=== PATIENT | female | born 1945 | race Caucasian/White ===

== ENCOUNTER 2017-12-30 17:40 | Inpatient (IN) | payer OTHER, MEDICAID ==
[~2017-12-30] VITALS: Ht 167.6 cm; Wt 76.7 kg
[2017-12-30 17:40] VITALS: BP_SYST 150
[~2017-12-30 17:40] MED LIST: AMIO100T3 PO; ASPI-862 PO; BISA10SU65; FOLI-43 PO; GUAI100L32 PO; IBUP-786 PO; INSU100V9 SQ; IPRA3AMP19 IH; LEVA1.256 IH; MEGE400O PO; METO25TA6 PO; NITR0.4T13 SL; POLY17PO4 PO; PRED10TA PO; SIMV10TA6 PO; THIA100T13 PO
[2017-12-30] MEDS ORDERED: NS 1000 ML IV.SOLN IV ONE (17:45)
[2017-12-30] MEDS ORDERED: ALOG1TAB10 PO (18:12)
[2017-12-30] MEDS ORDERED: ARTT OP (18:12)
[2017-12-30] MEDS ORDERED: INSU100V11 SQ (18:12)
[2017-12-30] MEDS ORDERED: DULR10 RC (18:12)
[2017-12-30] MEDS ORDERED: MELA3TAB37 PO (18:12)
[2017-12-30] MEDS ORDERED: METF1000 PO (18:12)
[2017-12-30 18:16] LABS: HEMOGLOBIN 11.6 g/dL (12.0-16.0); MEAN CORPUSCULAR HEMOGLOBIN 28 pg (27-31); MEAN CORPUSCULAR HGB CONC 32 % (32-36); MEAN CORPUSCULAR VOLUME 88 fL (79.0-98.0); PLATELET COUNT (AUTO) 466 K/uL (130-430); RED BLOOD CELL COUNT(AUTO) 4.11 MIL/uL (4.2-6.2); RED CELL DISTRIBUTION WIDTH 18.1 % (9.0-15.0); WHITE BLOOD COUNT (AUTO) 25.3 K/uL (4.8-10.8)
[2017-12-30 18:22] LABS: ANION GAP 16 (5-15); CALCIUM 9.5 mg/dL (8.4-11.0); CHLORIDE 117 mmol/L (98-107); CREATININE 1.37 mg/dL (0.55-1.30); GLUCOSE 281 mg/dL (70-99); POTASSIUM 4.6 mmol/L (3.5-5.1); SODIUM SERUM 155 mmol/L (136-145); UREA NITROGEN, BLOOD 33 mg/dL (8-21)
[2017-12-30 18:27] LABS: ALANINE AMINOTRANSFERASE 122 U/L (12-78); ALBUMIN 2.9 g/dL (3.4-4.8); ASPARTATE AMINOTRANSFERASE 213 U/L (10-37); TOTAL BILIRUBIN 0.3 mg/dL (0.0-1.0)
[2017-12-30 18:29] LABS: PROTHROMBIN TIME 10.4 SECS (9.5-12.5)
[2017-12-30] MEDS ORDERED: BETA1TAB4 PO (18:34)
[2017-12-30] MEDS ORDERED: MULT PO (18:34)
[2017-12-30] MEDS ORDERED: SSREG SUBCUT (18:34)
[2017-12-30] MEDS ORDERED: ASCO500T20 PO (18:34)
[2017-12-30] MEDS ORDERED: ASPI-1063 PO (18:34)
[2017-12-30] MEDS ORDERED: ZIN220 PO (18:34)
[2017-12-30] MEDS ORDERED: SERT50TA12 PO (18:34)
[2017-12-30 18:44] LABS: BAND % (MANUAL) 3 % (0-6); BASOPHILS % (MANUAL) 0 % (0-2); EOSINOPHILS % (MANUAL) 0 % (0-7); LYMPHOCYTES % (MANUAL) 7 % (20-46); MONOCYTES % (MANUAL) 0 % (0-11)
[2017-12-30 18:45] LABS: BILIRUBIN,URINE NEGATIVE (NEGATIVE); BLOOD, URINE NEGATIVE (NEGATIVE); CLARITY/URINE CLEAR (CLEAR); COLOR,URINE YELLOW (YELLOW); GLUCOSE,URINE NEGATIVE (NEGATIVE); KETONES,URINE TRACE (NEGATIVE); LEUKOCYTE ESTERASE ,URINE 1+ (NEGATIVE); NITRITE, URINE NEGATIVE (NEGATIVE); PROTEIN URINE 1+ (NEGATIVE); UROBILINOGEN,URINE 0.2 (0.2-1.0)
[2017-12-30] MEDS ORDERED: NS 500 ML IV ONE (18:45)
[2017-12-30] MEDS ORDERED: INSULIN REGULAR, HUMAN 10 UNITS/0.1 ML INJ IVP ONE (18:45)
[2017-12-30 18:52] LABS: BACTERIA,URINE MODERATE /HPF (None Seen); RBC,URINE 0-3 /HPF (0-3); YEAST,URINE Many /HPF (None Seen)
[2017-12-30] MEDS ORDERED: MILK OF MAGNESIA 30 ML UDC PO PRN (20:00)
[2017-12-30] MEDS ORDERED: BISACODYL 10 MG/SUPPOSITORY RC PRN (20:00)
[2017-12-30] MEDS ORDERED: LevALBUTEROL HCL 1.25 MG/0.5 ML *CONC.* VIAL.NEB (XOPENEX CONC.) INH PRN (20:00)
[2017-12-30] MEDS ORDERED: GENTAMICIN 100 mg/50 mL NS 50 ML IV SCH (20:00)
[2017-12-30 20:02] VITALS: BP_SYST 125
[2017-12-30] MEDS ORDERED: TEARS ARTIFICIAL 15 ML DROPS OP SCH (21:00)
[2017-12-30] MEDS ORDERED: VANCOMYCIN HCL 1 GM/NS PREMIX 250 ML IV ONE (21:00)
[2017-12-30 21:24] VITALS: BP_SYST 127
[2017-12-30] MEDS ORDERED: GENTAMICIN 120 mg/100 mL NS 100 ML IV ONE ×2 (21:30→23:45)
[2017-12-30] MEDS ORDERED: VANCOMYCIN HCL 1000 MG/VIAL IV ONE (21:30)
[2017-12-30 22:10] VITALS: BP_SYST 117
[2017-12-30] MEDS: KCL 20 mEq in 0.45% NS 1000 mL 1,000 ML IV SCH (22:13)
[2017-12-30] MEDS: ENOXAPARIN SODIUM 30 MG/0.3 ML SYRINGE SUBCUT SCH (22:41)
[2017-12-30] MEDS: INSULIN REGULAR, HUMAN 100 UNITS/ML, 10 ML VIAL (novoLIN R) SUBCUT PRN (22:42)
[2017-12-30] MEDS: methylPREDNISolone SOD SUCC/PF 62.5 MG/ML VIAL IVP SCH (23:54)
[2017-12-31] MEDS ORDERED: METOPROLOL TARTRATE 50 MG TABLET PO ONE (01:15)
[2017-12-31] MEDS: LevALBUTEROL HCL 1.25 MG/0.5 ML *CONC.* VIAL.NEB (XOPENEX CONC.) INH SCH ×4 (01:16→19:51)
[2017-12-31 01:30] VITALS: BP_SYST 117
[2017-12-31] MEDS ORDERED: GENTAMICIN 120 mg/ NS 100 mL IVPB IV ONE (02:00)
[2017-12-31] MEDS: methylPREDNISolone SOD SUCC/PF 62.5 MG/ML VIAL IVP SCH ×4 (06:38→23:53)
[2017-12-31] MEDS: INSULIN REGULAR, HUMAN 100 UNITS/ML, 10 ML VIAL (novoLIN R) SUBCUT PRN ×4 (06:41→21:30)
[2017-12-31 08:10] LABS: BASOPHILS # (AUTO) 0.1 K/uL (0.0-0.2); BASOPHILS % (AUTO) 0.4 % (0.0-2.0); HEMATOCRIT 29.9 % (36-48); HEMOGLOBIN 9.7 g/dL (12.0-16.0); LYMPHOCYTES # (AUTO) 3.5 K/uL (1.0-5.5); LYMPHOCYTES % (AUTO) 15.8 % (20.5-51.5); MEAN CORPUSCULAR HEMOGLOBIN 29 pg (27-31); MEAN CORPUSCULAR HGB CONC 32 % (32-36); MEAN CORPUSCULAR VOLUME 88 fL (79.0-98.0); MONOCYTES # (AUTO) 1.5 K/uL (0.0-1.0); MONOCYTES % (AUTO) 6.8 % (1.7-9.3); NEUTROPHILS # (AUTO) 17.3 K/uL (1.8-7.7); PLATELET COUNT (AUTO) 347 K/uL (130-430); RED BLOOD CELL COUNT(AUTO) 3.39 MIL/uL (4.2-6.2); RED CELL DISTRIBUTION WIDTH 18.2 % (9.0-15.0); WHITE BLOOD COUNT (AUTO) 22.4 K/uL (4.8-10.8)
[2017-12-31 08:22] LABS: ANION GAP 7 (5-15); CALCIUM 8.7 mg/dL (8.4-11.0); CREATININE 0.86 mg/dL (0.55-1.30); GLUCOSE 160 mg/dL (70-99); SODIUM SERUM 154 mmol/L (136-145); UREA NITROGEN, BLOOD 31 mg/dL (8-21)
[2017-12-31 08:31] VITALS: BP_SYST 117
[2017-12-31 08:37] LABS: CHLORIDE 121 mmol/L (98-107)
[2017-12-31] MEDS: FOLIC ACID 1 MG TABLET PO SCH (08:47)
[2017-12-31] MEDS: ASPIRIN 81 MG TABLET(ECOTRIN) PO SCH (08:47)
[2017-12-31] MEDS: ASCORBIC ACID 500 MG TABLET PO SCH (08:47)
[2017-12-31] MEDS: MULTIVITAMINS TAB 1 TABLET PO SCH (08:47)
[2017-12-31] MEDS: metFORMIN HCL 500 MG TABLET PO SCH ×2 (08:47→17:33)
[2017-12-31] MEDS: METOPROLOL TARTRATE 50 MG TABLET PO SCH ×2 (08:48→21:13)
[2017-12-31] MEDS: SERTRALINE HCL 50 MG TABLET PO SCH (08:48)
[2017-12-31] MEDS: TEARS ARTIFICIAL 15 ML DROPS OP SCH ×2 (08:49→21:14)
[2017-12-31] MEDS ORDERED: MILK OF MAGNESIA 30 ML UDC PO PRN (11:30)
[2017-12-31 12:45] VITALS: BP_SYST 103
[2017-12-31] MEDS: KCL 20 mEq in 0.45% NS 1000 mL 1,000 ML IV SCH (13:19)
[2017-12-31 16:45] VITALS: BP_SYST 108
[2017-12-31 17:44] LABS: ALBUMIN 2.5 g/dL (3.4-4.8); BILIRUBIN,DIRECT 0.1 mg/dL (0.0-0.3); TOTAL BILIRUBIN 0.3 mg/dL (0.0-1.0)
[2017-12-31] MEDS: FLUCONAZOLE 200 mg/ NS 100 ML IV SCH (17:45)
[2017-12-31] MEDS ORDERED: KAZANO PO SCH ×2 (18:00)
[2017-12-31 20:00] VITALS: BP_SYST 115
[2017-12-31] MEDS: CEFEPIME 1 GM in D5W 50 ML IV SCH (21:13)
[2017-12-31] MEDS: ENOXAPARIN SODIUM 30 MG/0.3 ML SYRINGE SUBCUT SCH (21:16)
[2017-12-31] MEDS ORDERED: VANCOMYCIN HCL 1,000 MG in NS 250 ML IV SCH (22:00)
[2018-01-01] MEDS: LevALBUTEROL HCL 1.25 MG/0.5 ML *CONC.* VIAL.NEB (XOPENEX CONC.) INH SCH ×4 (00:27→20:27)
[2018-01-01 00:40] VITALS: BP_SYST 100
[2018-01-01] MEDS: KCL 20 mEq in 0.45% NS 1000 mL 1,000 ML IV SCH ×2 (02:00→13:19)
[2018-01-01] MEDS ORDERED: GENTAMICIN 120 mg/100 mL NS 100 ML IV SCH (02:00)
[2018-01-01] MEDS: methylPREDNISolone SOD SUCC/PF 62.5 MG/ML VIAL IVP SCH ×4 (05:21→23:29)
[2018-01-01] MEDS: INSULIN REGULAR, HUMAN 100 UNITS/ML, 10 ML VIAL (novoLIN R) SUBCUT PRN ×4 (05:28→21:07)
[2018-01-01 06:05] LABS: BASOPHILS # (AUTO) 0.1 K/uL (0.0-0.2); BASOPHILS % (AUTO) 0.4 % (0.0-2.0); HEMATOCRIT 28.7 % (36-48); HEMOGLOBIN 9.3 g/dL (12.0-16.0); LYMPHOCYTES # (AUTO) 1.6 K/uL (1.0-5.5); LYMPHOCYTES % (AUTO) 11.9 % (20.5-51.5); MEAN CORPUSCULAR HEMOGLOBIN 29 pg (27-31); MEAN CORPUSCULAR HGB CONC 32 % (32-36); MEAN CORPUSCULAR VOLUME 89 fL (79.0-98.0); MONOCYTES # (AUTO) 0.2 K/uL (0.0-1.0); MONOCYTES % (AUTO) 1.1 % (1.7-9.3); NEUTROPHILS # (AUTO) 11.9 K/uL (1.8-7.7); PLATELET COUNT (AUTO) 304 K/uL (130-430); RED BLOOD CELL COUNT(AUTO) 3.24 MIL/uL (4.2-6.2); RED CELL DISTRIBUTION WIDTH 17.9 % (9.0-15.0); WHITE BLOOD COUNT (AUTO) 13.8 K/uL (4.8-10.8)
[2018-01-01 08:00] VITALS: BP_SYST 102
[2018-01-01] MEDS: METOPROLOL TARTRATE 50 MG TABLET PO SCH ×2 (09:00→20:56)
[2018-01-01] MEDS: ASPIRIN 81 MG TABLET(ECOTRIN) PO SCH (10:03)
[2018-01-01] MEDS: MULTIVITAMINS TAB 1 TABLET PO SCH (10:03)
[2018-01-01] MEDS: ASCORBIC ACID 500 MG TABLET PO SCH (10:03)
[2018-01-01] MEDS: SERTRALINE HCL 50 MG TABLET PO SCH (10:03)
[2018-01-01] MEDS: FOLIC ACID 1 MG TABLET PO SCH (10:03)
[2018-01-01] MEDS: metFORMIN HCL 500 MG TABLET PO SCH ×2 (10:03→17:56)
[2018-01-01] MEDS: TEARS ARTIFICIAL 15 ML DROPS OP SCH ×2 (10:04→20:59)
[2018-01-01] MEDS: CEFEPIME 1 GM in D5W 50 ML IV SCH ×2 (10:04→20:55)
[2018-01-01 11:09] LABS: NEUTROPHILS % (AUTO) 86.6 % (40.0-70.0)
[2018-01-01 13:29] VITALS: BP_SYST 117
[2018-01-01] MEDS: VANCOMYCIN HCL 1,000 MG in NS 250 ML IV SCH (16:16)
[2018-01-01 17:20] VITALS: BP_SYST 115
[2018-01-01] MEDS: FLUCONAZOLE 200 mg/ NS 100 ML IV SCH (18:33)
[2018-01-01 19:50] VITALS: BP_SYST 110
[2018-01-01] MEDS: ENOXAPARIN SODIUM 30 MG/0.3 ML SYRINGE SUBCUT SCH (20:57)
[2018-01-01] MEDS ORDERED: MUPIROCIN NASAL 2% OINT. NS SCH (21:00)
[2018-01-02] VITALS (14 sets, daily range): BP systolic 70–137
[2018-01-02] MEDS: LevALBUTEROL HCL 1.25 MG/0.5 ML *CONC.* VIAL.NEB (XOPENEX CONC.) INH SCH ×4 (01:28→19:38)
[2018-01-02] MEDS: KCL 20 mEq in 0.45% NS 1000 mL 1,000 ML IV SCH ×2 (02:53→13:48)
[2018-01-02] MEDS: methylPREDNISolone SOD SUCC/PF 62.5 MG/ML VIAL IVP SCH ×3 (06:34→18:11)
[2018-01-02] MEDS: INSULIN REGULAR, HUMAN 100 UNITS/ML, 10 ML VIAL (novoLIN R) SUBCUT PRN ×4 (06:37→21:01)
[2018-01-02] MEDS: MULTIVITAMINS TAB 1 TABLET PO SCH (08:50)
[2018-01-02] MEDS: ASPIRIN 81 MG TABLET(ECOTRIN) PO SCH (08:50)
[2018-01-02] MEDS: ASCORBIC ACID 500 MG TABLET PO SCH (08:50)
[2018-01-02] MEDS: metFORMIN HCL 500 MG TABLET PO SCH ×2 (08:51→18:11)
[2018-01-02] MEDS: FOLIC ACID 1 MG TABLET PO SCH (08:51)
[2018-01-02] MEDS: SERTRALINE HCL 50 MG TABLET PO SCH (08:51)
[2018-01-02] MEDS: MUPIROCIN 2% TOPICAL OINTMENT 22 GM TP SCH ×2 (08:52→20:56)
[2018-01-02] MEDS: METOPROLOL TARTRATE 50 MG TABLET PO SCH ×3 (09:00→20:58)
[2018-01-02] MEDS ORDERED: NS 500 ML IV ONE (09:30)
[2018-01-02] MEDS: CEFEPIME 1 GM in D5W 50 ML IV SCH ×2 (09:46→20:58)
[2018-01-02] MEDS: TEARS ARTIFICIAL 15 ML DROPS OP SCH ×2 (09:46→20:57)
[2018-01-02] MEDS ORDERED: NACL 0.9% 1,000 ML IV ONE (12:15)
[2018-01-02] MEDS ORDERED: ALBUMIN HUMAN 25% 100 ML IV ONE (12:15)
[2018-01-02 12:40] LABS: LYMPHOCYTES # (AUTO) 1.2 K/uL (1.0-5.5); LYMPHOCYTES % (AUTO) 6.6 % (20.5-51.5); MONOCYTES # (AUTO) 0.4 K/uL (0.0-1.0); NEUTROPHILS % (AUTO) 90.1 % (40.0-70.0); WHITE BLOOD COUNT (AUTO) 17.6 K/uL (4.8-10.8)
[2018-01-02 12:43] LABS: ANION GAP 19 (5-15); BASOPHILS # (AUTO) 0.1 K/uL (0.0-0.2); BASOPHILS % (AUTO) 0.8 % (0.0-2.0); CHLORIDE 107 mmol/L (98-107); GLUCOSE 278 mg/dL (70-99); HEMATOCRIT 33.1 % (36-48); HEMOGLOBIN 10.7 g/dL (12.0-16.0); MEAN CORPUSCULAR HEMOGLOBIN 29 pg (27-31); MEAN CORPUSCULAR HGB CONC 32 % (32-36); MEAN CORPUSCULAR VOLUME 89 fL (79.0-98.0); MONOCYTES % (AUTO) 2.5 % (1.7-9.3); NEUTROPHILS # (AUTO) 15.9 K/uL (1.8-7.7); PLATELET COUNT (AUTO) 337 K/uL (130-430); POTASSIUM 5.3 mmol/L (3.5-5.1); RED BLOOD CELL COUNT(AUTO) 3.74 MIL/uL (4.2-6.2); RED CELL DISTRIBUTION WIDTH 17.4 % (9.0-15.0); SODIUM SERUM 140 mmol/L (136-145)
[2018-01-02 12:44] LABS: CALCIUM 8.5 mg/dL (8.4-11.0); CREATININE 1.17 mg/dL (0.55-1.30); UREA NITROGEN, BLOOD 35 mg/dL (8-21)
[2018-01-02 12:51] LABS: ALANINE AMINOTRANSFERASE 84 U/L (12-78); ALBUMIN 2.4 g/dL (3.4-4.8); ASPARTATE AMINOTRANSFERASE 41 U/L (10-37); TOTAL BILIRUBIN 0.2 mg/dL (0.0-1.0)
[2018-01-02] MEDS ORDERED: AMIODARONE HCL 900 MG in D5W 482 ML IV SCH (13:00)
[2018-01-02] MEDS ORDERED: DIGOXIN 0.5 MG/2 ML AMP IVP ONE ×3 (14:15→22:00)
[2018-01-02] MEDS: FLUCONAZOLE 200 mg/ NS 100 ML IV SCH (16:34)
[2018-01-02] MEDS ORDERED: NOREPINEPHRINE 4 MG/4 ML VIAL IV ONE (17:21)
[2018-01-02] MEDS ORDERED: NOREPINEPHRINE BITARTRATE 4 MG in NS 246 ML IV PRN (18:00)
[2018-01-02] MEDS: VANCOMYCIN HCL 1,000 MG in NS 250 ML IV SCH (18:37)
[2018-01-02] MEDS: NACL 0.9% 1,000 ML IV SCH (19:53)
[2018-01-02] MEDS: ENOXAPARIN SODIUM 30 MG/0.3 ML SYRINGE SUBCUT SCH (21:00)
[2018-01-02] MEDS ORDERED: HALOPERIDOL LACTATE 5 MG/ML VIAL IM ONE (22:30)
[2018-01-03] VITALS (24 sets, daily range): BP systolic 91–137
[2018-01-03] MEDS: methylPREDNISolone SOD SUCC/PF 62.5 MG/ML VIAL IVP SCH ×4 (00:28→17:08)
[2018-01-03] MEDS: LevALBUTEROL HCL 1.25 MG/0.5 ML *CONC.* VIAL.NEB (XOPENEX CONC.) INH SCH ×4 (01:00→19:00)
[2018-01-03 06:25] LABS: BASOPHILS % (AUTO) 0.2 % (0.0-2.0); HEMATOCRIT 28.6 % (36-48); HEMOGLOBIN 9.2 g/dL (12.0-16.0); LYMPHOCYTES # (AUTO) 0.9 K/uL (1.0-5.5); LYMPHOCYTES % (AUTO) 5.2 % (20.5-51.5); MEAN CORPUSCULAR HEMOGLOBIN 29 pg (27-31); MEAN CORPUSCULAR HGB CONC 32 % (32-36); MEAN CORPUSCULAR VOLUME 88 fL (79.0-98.0); MONOCYTES # (AUTO) 0.6 K/uL (0.0-1.0); MONOCYTES % (AUTO) 3.4 % (1.7-9.3); NEUTROPHILS # (AUTO) 15.9 K/uL (1.8-7.7); NEUTROPHILS % (AUTO) 91.2 % (40.0-70.0); PLATELET COUNT (AUTO) 295 K/uL (130-430); RED BLOOD CELL COUNT(AUTO) 3.24 MIL/uL (4.2-6.2); RED CELL DISTRIBUTION WIDTH 17.8 % (9.0-15.0); WHITE BLOOD COUNT (AUTO) 17.4 K/uL (4.8-10.8)
[2018-01-03] MEDS: INSULIN REGULAR, HUMAN 100 UNITS/ML, 10 ML VIAL (novoLIN R) SUBCUT PRN ×4 (06:29→20:36)
[2018-01-03] MEDS: NACL 0.9% 1,000 ML IV SCH ×2 (06:38→15:52)
[2018-01-03 07:18] LABS: POTASSIUM 4.6 mmol/L (3.5-5.1)
[2018-01-03 07:19] LABS: CALCIUM 7.8 mg/dL (8.4-11.0); CREATININE 1.14 mg/dL (0.55-1.30); TOTAL BILIRUBIN 0.2 mg/dL (0.0-1.0)
[2018-01-03 07:20] LABS: ALBUMIN 2.5 g/dL (3.4-4.8)
[2018-01-03 07:22] LABS: THYROID STIMULATING HORMONE 1.51 uIu/mL (0.34-4.82)
[2018-01-03] MEDS: CEFEPIME 1 GM in D5W 50 ML IV SCH ×2 (08:24→20:38)
[2018-01-03] MEDS: SERTRALINE HCL 50 MG TABLET PO SCH (08:25)
[2018-01-03] MEDS: ASCORBIC ACID 500 MG TABLET PO SCH (08:25)
[2018-01-03] MEDS: ASPIRIN 81 MG TABLET(ECOTRIN) PO SCH (08:25)
[2018-01-03] MEDS: metFORMIN HCL 500 MG TABLET PO SCH ×2 (08:25→17:08)
[2018-01-03] MEDS: FOLIC ACID 1 MG TABLET PO SCH (08:25)
[2018-01-03] MEDS: MULTIVITAMINS TAB 1 TABLET PO SCH (08:25)
[2018-01-03] MEDS: TEARS ARTIFICIAL 15 ML DROPS OP SCH ×2 (08:26→20:39)
[2018-01-03] MEDS: MUPIROCIN 2% TOPICAL OINTMENT 22 GM TP SCH ×2 (08:26→20:40)
[2018-01-03] MEDS: METOPROLOL TARTRATE 50 MG TABLET PO SCH ×2 (08:27→20:41)
[2018-01-03] MEDS ORDERED: FUROSEMIDE 20 MG/2 ML VIAL IVP ONE ×2 (09:00→11:00)
[2018-01-03] MEDS ORDERED: AMIODARONE HCL 200 MG TABLET PO SCH (09:00)
[2018-01-03] MEDS: DIGOXIN 0.125 MG TABLET PO SCH (09:19)
[2018-01-03] MEDS: VANCOMYCIN HCL 1,000 MG in NS 250 ML IV SCH (15:53)
[2018-01-03] MEDS: FLUCONAZOLE 200 mg/ NS 100 ML IV SCH (17:10)
[2018-01-03] MEDS: guaiFENesin ER 600 MG TAB PO SCH (20:40)
[2018-01-03] MEDS: AMIODARONE HCL 200 MG TABLET PO SCH (20:41)
[2018-01-03] MEDS ORDERED: ENOXAPARIN SODIUM 30 MG/0.3 ML SYRINGE SUBCUT SCH (21:00)
[2018-01-04] VITALS (24 sets, daily range): BP systolic 95–138
[2018-01-04] MEDS: methylPREDNISolone SOD SUCC/PF 62.5 MG/ML VIAL IVP SCH ×4 (00:41→20:59)
[2018-01-04] MEDS: NACL 0.9% 1,000 ML IV SCH ×2 (00:42→09:56)
[2018-01-04] MEDS: LevALBUTEROL HCL 1.25 MG/0.5 ML *CONC.* VIAL.NEB (XOPENEX CONC.) INH SCH ×4 (00:47→19:39)
[2018-01-04 06:12] LABS: HEMATOCRIT 27.6 % (36-48); MEAN CORPUSCULAR HEMOGLOBIN 29 pg (27-31); MEAN CORPUSCULAR HGB CONC 33 % (32-36); MEAN CORPUSCULAR VOLUME 88 fL (79.0-98.0); PLATELET COUNT (AUTO) 260 K/uL (130-430); RED BLOOD CELL COUNT(AUTO) 3.15 MIL/uL (4.2-6.2); RED CELL DISTRIBUTION WIDTH 17.6 % (9.0-15.0); WHITE BLOOD COUNT (AUTO) 16.1 K/uL (4.8-10.8)
[2018-01-04 06:13] LABS: ANION GAP 8 (5-15); CALCIUM 7.5 mg/dL (8.4-11.0); CHLORIDE 109 mmol/L (98-107); CREATININE 0.89 mg/dL (0.55-1.30); GLUCOSE 146 mg/dL (70-99); POTASSIUM 3.4 mmol/L (3.5-5.1); SODIUM SERUM 141 mmol/L (136-145); UREA NITROGEN, BLOOD 29 mg/dL (8-21)
[2018-01-04 06:28] LABS: ALANINE AMINOTRANSFERASE 63 U/L (12-78); ALBUMIN 2.4 g/dL (3.4-4.8); ASPARTATE AMINOTRANSFERASE 21 U/L (10-37); THYROID STIMULATING HORMONE 0.99 uIu/mL (0.36-3.74); TOTAL BILIRUBIN 0.2 mg/dL (0.0-1.0)
[2018-01-04 08:00] LABS: BAND % (MANUAL) 1 % (0-6); BASOPHILS % (MANUAL) 0 % (0-2); EOSINOPHILS % (MANUAL) 0 % (0-7); LYMPHOCYTES % (MANUAL) 5 % (20-46); MONOCYTES % (MANUAL) 3 % (0-11)
[2018-01-04 08:02] LABS: MYELOCYTES % 4 % (0-0)
[2018-01-04 08:03] LABS: PROMYELOCYTES % 1 % (0-0)
[2018-01-04 08:05] LABS: WBC MORPHOLOGY HYPERSEGMENTED NEUT
[2018-01-04] MEDS: guaiFENesin ER 600 MG TAB PO SCH ×2 (08:57→20:06)
[2018-01-04] MEDS: FOLIC ACID 1 MG TABLET PO SCH (08:57)
[2018-01-04] MEDS: ASCORBIC ACID 500 MG TABLET PO SCH (08:57)
[2018-01-04] MEDS: SERTRALINE HCL 50 MG TABLET PO SCH (08:57)
[2018-01-04] MEDS: ASPIRIN 81 MG TABLET(ECOTRIN) PO SCH (08:57)
[2018-01-04] MEDS: METOPROLOL TARTRATE 50 MG TABLET PO SCH ×2 (08:58→20:04)
[2018-01-04] MEDS: metFORMIN HCL 500 MG TABLET PO SCH ×2 (08:58→17:19)
[2018-01-04] MEDS: MULTIVITAMINS TAB 1 TABLET PO SCH (08:58)
[2018-01-04] MEDS: AMIODARONE HCL 200 MG TABLET PO SCH ×2 (08:59→20:06)
[2018-01-04] MEDS: CEFEPIME 1 GM in D5W 50 ML IV SCH ×2 (09:00→20:59)
[2018-01-04] MEDS: DIGOXIN 0.125 MG TABLET PO SCH (09:05)
[2018-01-04] MEDS: MUPIROCIN 2% TOPICAL OINTMENT 22 GM TP SCH ×2 (09:06→20:13)
[2018-01-04] MEDS: TEARS ARTIFICIAL 15 ML DROPS OP SCH ×2 (09:07→20:14)
[2018-01-04] MEDS ORDERED: FUROSEMIDE 20 MG/2 ML VIAL IVP ONE (10:00)
[2018-01-04] MEDS: INSULIN REGULAR, HUMAN 100 UNITS/ML, 10 ML VIAL (novoLIN R) SUBCUT PRN ×3 (10:47→20:25)
[2018-01-04] MEDS ORDERED: POTASSIUM CHLORIDE 20 MEQ TAB.PRT.SR PO ONE (11:00)
[2018-01-04] MEDS ORDERED: 0.45% NACL 1,000 ML IV SCH (11:00)
[2018-01-04] MEDS: VANCOMYCIN HCL 1,000 MG in NS 250 ML IV SCH (16:22)
[2018-01-04] MEDS: FLUCONAZOLE 200 mg/ NS 100 ML IV SCH (17:20)
[2018-01-04] MEDS: ENOXAPARIN SODIUM 80 MG/0.8 ML SYRINGE SUBCUT SCH (20:08)
[2018-01-05] VITALS (19 sets, daily range): BP systolic 58–127
[2018-01-05] MEDS: LevALBUTEROL HCL 1.25 MG/0.5 ML *CONC.* VIAL.NEB (XOPENEX CONC.) INH SCH ×4 (01:01→20:04)
[2018-01-05 05:43] LABS: EOSINOPHILS % (AUTO) 0.1 % (0.0-4.0)
[2018-01-05 06:17] LABS: BASOPHILS % (AUTO) 0.1 % (0.0-2.0); HEMATOCRIT 27.3 % (36-48); HEMOGLOBIN 8.7 g/dL (12.0-16.0); LYMPHOCYTES % (AUTO) 6.1 % (20.5-51.5); MEAN CORPUSCULAR HEMOGLOBIN 28 pg (27-31); MEAN CORPUSCULAR HGB CONC 32 % (32-36); MEAN CORPUSCULAR VOLUME 87 fL (79.0-98.0); MONOCYTES # (AUTO) 0.3 K/uL (0.0-1.0); MONOCYTES % (AUTO) 1.9 % (1.7-9.3); NEUTROPHILS % (AUTO) 91.8 % (40.0-70.0); PLATELET COUNT (AUTO) 261 K/uL (130-430); RED BLOOD CELL COUNT(AUTO) 3.12 MIL/uL (4.2-6.2); RED CELL DISTRIBUTION WIDTH 17.5 % (9.0-15.0); WHITE BLOOD COUNT (AUTO) 16.3 K/uL (4.8-10.8)
[2018-01-05] MEDS: methylPREDNISolone SOD SUCC/PF 62.5 MG/ML VIAL IVP SCH ×3 (06:23→22:08)
[2018-01-05] MEDS: INSULIN REGULAR, HUMAN 100 UNITS/ML, 10 ML VIAL (novoLIN R) SUBCUT PRN ×4 (06:23→22:23)
[2018-01-05 06:26] LABS: ANION GAP 10 (5-15); CALCIUM 7.4 mg/dL (8.4-11.0); CHLORIDE 103 mmol/L (98-107); CREATININE 0.84 mg/dL (0.55-1.30); GLUCOSE 151 mg/dL (70-99); POTASSIUM 3.8 mmol/L (3.5-5.1); SODIUM SERUM 137 mmol/L (136-145); UREA NITROGEN, BLOOD 25 mg/dL (8-21)
[2018-01-05] MEDS: CEFEPIME 1 GM in D5W 50 ML IV SCH ×2 (08:19→22:15)
[2018-01-05] MEDS: AMIODARONE HCL 200 MG TABLET PO SCH ×2 (08:20→22:13)
[2018-01-05] MEDS: guaiFENesin ER 600 MG TAB PO SCH ×2 (08:20→22:09)
[2018-01-05] MEDS: ASPIRIN 81 MG TABLET(ECOTRIN) PO SCH (08:20)
[2018-01-05] MEDS: ASCORBIC ACID 500 MG TABLET PO SCH (08:20)
[2018-01-05] MEDS: SERTRALINE HCL 50 MG TABLET PO SCH (08:20)
[2018-01-05] MEDS: metFORMIN HCL 500 MG TABLET PO SCH ×2 (08:20→18:49)
[2018-01-05] MEDS: MULTIVITAMINS TAB 1 TABLET PO SCH (08:20)
[2018-01-05] MEDS: FOLIC ACID 1 MG TABLET PO SCH (08:20)
[2018-01-05] MEDS: DIGOXIN 0.125 MG TABLET PO SCH (08:21)
[2018-01-05] MEDS: METOPROLOL TARTRATE 50 MG TABLET PO SCH ×2 (08:21→22:14)
[2018-01-05] MEDS: FUROSEMIDE 20 MG/2 ML VIAL IVP SCH (08:22)
[2018-01-05] MEDS: MUPIROCIN 2% TOPICAL OINTMENT 22 GM TP SCH ×2 (10:32→23:46)
[2018-01-05] MEDS: TEARS ARTIFICIAL 15 ML DROPS OP SCH ×2 (10:33→23:46)
[2018-01-05] MEDS: ENOXAPARIN SODIUM 80 MG/0.8 ML SYRINGE SUBCUT SCH ×2 (11:43→22:27)
[2018-01-05] MEDS: VANCOMYCIN HCL 1,000 MG in NS 250 ML IV SCH (15:20)
[2018-01-06] VITALS (7 sets, daily range): BP systolic 92–115
[2018-01-06] MEDS: LevALBUTEROL HCL 1.25 MG/0.5 ML *CONC.* VIAL.NEB (XOPENEX CONC.) INH SCH ×4 (01:15→19:50)
[2018-01-06] MEDS: methylPREDNISolone SOD SUCC/PF 62.5 MG/ML VIAL IVP SCH (05:16)
[2018-01-06 06:52] LABS: ANION GAP 12 (5-15); CALCIUM 7.7 mg/dL (8.4-11.0); CHLORIDE 103 mmol/L (98-107); CREATININE 0.82 mg/dL (0.55-1.30); GLUCOSE 198 mg/dL (70-99); POTASSIUM 3.8 mmol/L (3.5-5.1); SODIUM SERUM 137 mmol/L (136-145); UREA NITROGEN, BLOOD 24 mg/dL (8-21)
[2018-01-06 06:53] LABS: HEMATOCRIT 27.7 % (36-48); HEMOGLOBIN 9.1 g/dL (12.0-16.0); MEAN CORPUSCULAR HEMOGLOBIN 29 pg (27-31); MEAN CORPUSCULAR HGB CONC 33 % (32-36); MEAN CORPUSCULAR VOLUME 87 fL (79.0-98.0); PLATELET COUNT (AUTO) 321 K/uL (130-430); RED BLOOD CELL COUNT(AUTO) 3.17 MIL/uL (4.2-6.2); WHITE BLOOD COUNT (AUTO) 18.2 K/uL (4.8-10.8)
[2018-01-06 09:05] LABS: BAND % (MANUAL) 3 % (0-6); BASOPHILS % (MANUAL) 0 % (0-2); EOSINOPHILS % (MANUAL) 0 % (0-7); LYMPHOCYTES % (MANUAL) 5 % (20-46); MONOCYTES % (MANUAL) 3 % (0-11)
[2018-01-06 09:06] LABS: METAMYELOCYTES % 7 % (0-0); MYELOCYTES % 8 % (0-0)
[2018-01-06] MEDS: ASPIRIN 81 MG TABLET(ECOTRIN) PO SCH (09:07)
[2018-01-06] MEDS: CEFEPIME 1 GM in D5W 50 ML IV SCH ×2 (09:08→20:53)
[2018-01-06] MEDS: FUROSEMIDE 20 MG/2 ML VIAL IVP SCH (09:09)
[2018-01-06] MEDS: METOPROLOL TARTRATE 50 MG TABLET PO SCH ×2 (09:09→21:01)
[2018-01-06] MEDS: guaiFENesin ER 600 MG TAB PO SCH ×2 (09:10→21:00)
[2018-01-06] MEDS: MULTIVITAMINS TAB 1 TABLET PO SCH (09:10)
[2018-01-06] MEDS: ASCORBIC ACID 500 MG TABLET PO SCH (09:10)
[2018-01-06] MEDS: FOLIC ACID 1 MG TABLET PO SCH (09:10)
[2018-01-06] MEDS: metFORMIN HCL 500 MG TABLET PO SCH ×2 (09:10→17:31)
[2018-01-06] MEDS: AMIODARONE HCL 200 MG TABLET PO SCH ×2 (09:10→21:01)
[2018-01-06] MEDS: DIGOXIN 0.125 MG TABLET PO SCH (09:10)
[2018-01-06] MEDS: SERTRALINE HCL 50 MG TABLET PO SCH (09:10)
[2018-01-06] MEDS: ENOXAPARIN SODIUM 80 MG/0.8 ML SYRINGE SUBCUT SCH ×2 (09:11→20:58)
[2018-01-06] MEDS: TEARS ARTIFICIAL 15 ML DROPS OP SCH ×2 (09:25→20:57)
[2018-01-06] MEDS: MUPIROCIN 2% TOPICAL OINTMENT 22 GM TP SCH ×2 (09:25→21:00)
[2018-01-06] MEDS: INSULIN REGULAR, HUMAN 100 UNITS/ML, 10 ML VIAL (novoLIN R) SUBCUT PRN ×3 (11:44→20:59)
[2018-01-06] MEDS ORDERED: AZITHROMYCIN 500 MG in NS 250 ML IV ONE (12:00)
[2018-01-06] MEDS ORDERED: methylPREDNISolone SOD SUCC 40 MG/ML VIAL IVP SCH ×2 (14:00→21:00)
[2018-01-07] MEDS ORDERED: AZITHROMYCIN 500 MG in NS 250 ML IV SCH (09:00)
== END 2018-01-06 21:20 | DRG 871 ==
LOC: SED 17:40 → STU 19:19 → SIC 01-02 13:27 → STU 01-05 17:03
PROVIDERS: ADMIT Family Medicine; ATTEND Family Medicine
PROC: 02HV33Z Insertion of Infusion Device into Superior Vena Cava, Percutaneous Approach (ICD-10-PCS; principal; 2017-12-31)
PROC: B548ZZA Ultrasonography of Superior Vena Cava, Guidance (ICD-10-PCS; 2017-12-31)
DX: A41.9 Sepsis, unspecified organism (principal); J96.21 Acute and chronic respiratory failure with hypoxia; R65.21 Severe sepsis with septic shock; I21.A1 Myocardial infarction type 2; J18.1 Lobar pneumonia, unspecified organism; J44.1 Chronic obstructive pulmonary disease with (acute) exacerbation; N17.9 Acute kidney failure, unspecified; N39.0 Urinary tract infection, site not specified; J44.0 Chronic obstructive pulmonary disease with (acute) lower respiratory infection; E87.0 Hyperosmolality and hypernatremia; E87.2 Acidosis; I13.0 Hypertensive heart and chronic kidney disease with heart failure and stage 1 through stage 4 chronic kidney disease, or unspecified chronic kidney disease; I50.40 Unspecified combined systolic (congestive) and diastolic (congestive) heart failure; D68.59 Other primary thrombophilia; E46 Unspecified protein-calorie malnutrition; E86.0 Dehydration; E11.9 Type 2 diabetes mellitus without complications; I12.9 Hypertensive chronic kidney disease with stage 1 through stage 4 chronic kidney disease, or unspecified chronic kidney disease; E11.22 Type 2 diabetes mellitus with diabetic chronic kidney disease; F44.4 Conversion disorder with motor symptom or deficit; C76.0 Malignant neoplasm of head, face and neck; E11.65 Type 2 diabetes mellitus with hyperglycemia; R74.0 Nonspecific elevation of levels of transaminase and lactic acid dehydrogenase [LDH]; E11.42 Type 2 diabetes mellitus with diabetic polyneuropathy; F32.9 Major depressive disorder, single episode, unspecified; N18.9 Chronic kidney disease, unspecified; F41.9 Anxiety disorder, unspecified; F03.90 Unspecified dementia, unspecified severity, without behavioral disturbance, psychotic disturbance, mood disturbance, and anxiety; I48.91 Unspecified atrial fibrillation; M19.90 Unspecified osteoarthritis, unspecified site; Z88.0 Allergy status to penicillin; Z87.440 Personal history of urinary (tract) infections; Z79.899 Other long term (current) drug therapy; Z79.82 Long term (current) use of aspirin; Z22.322 Carrier or suspected carrier of Methicillin resistant Staphylococcus aureus; Z74.01 Bed confinement status; Z87.891 Personal history of nicotine dependence
CPT/HCPCS: 36415; 71045; 71250-TC; 76604; 76705; 80048; 80053; 80061; 80076; 80202-TC; 81000-TC; 82040-TC; 82962; 83605; 83735-TC; 83880; 84443-TC; 84484; 85007; 85025; 85027; 85610-TC; 85730-TC; 86738; 87040-TC; 87081; 87086; 87449; 93005; 93306; 94640; 94760; 96361; 96365; 96375; 99291; C1751; C1769; J0282; J0456; J0692; J1030; J1160; J1450; J1580; J1650; J1815; J1940; J1956; J2930; J3370; J3480; J7030; J7040; J7050; J7060; J7612; P9046